=== PATIENT | female | born 2000 | race African-American/Black ===

== ENCOUNTER 2019-02-02 10:32 | Emergency (ER) | payer BC ==
[~2019-02-02] VITALS: Ht 167.6 cm; Wt 54.0 kg
[2019-02-02] MEDS ORDERED: IBUPROFEN 600MG TABLET PO ONE (11:30)
[2019-02-02 12:39] VITALS: BP 115/75
== END 2019-02-02 12:43 | disposition home or self-care (01) ==
LOC: ER 10:32
DX: S20.211A Contusion of right front wall of thorax, initial encounter (principal); S40.011A Contusion of right shoulder, initial encounter; J45.909 Unspecified asthma, uncomplicated; V43.62XA Car passenger injured in collision with other type car in traffic accident, initial encounter; Y93.9 Activity, unspecified; Y92.410 Unspecified street and highway as the place of occurrence of the external cause; Z88.0 Allergy status to penicillin; Z88.2 Allergy status to sulfonamides
CPT/HCPCS: 71045; 73030; 81025; 93005; 99283